=== PATIENT | male | born 1970 | race African-American/Black ===

== ENCOUNTER 2018-01-01 07:50 | Emergency (ER) | payer SELFPAY ==
--- NOTE | 2018-01-01 08:11 | ED Physician Documentation ---
General Adult - HISTORIAN Historian: patient - HPI Stated Complaint: swollen eye Chief Complaint: General Adult Onset: days ago (1) Timing: still present Severity: moderate Further Comments: yes (Pt is 47 yo male with itchiness and swelling around his R eye. Vision is unimpaired. No pain, per se, apart from itching. 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 He was struck by some flying debris in his glasses, but did not notice any problem until later in the day. Pt also has a rash on his upper extremities. He speculates that he may have gotten poison gardenia in his eye after scratching the rash on his arms.) - ROS CONST: no problems EYES/ENT: other (swelling/itching R eye) CVS/RESP: none GI/: none MS/SKIN/LYMPH: rash - PAST HX Past History: other (appendectomy) Allergies/Adverse Reactions: Allergies Allergy/AdvReac Type Severity Reaction Status Date / Time codeine Allergy Verified 01/01/18 08:12 Home Medications: Ambulatory Orders Medication Instructions Recorded NK 01/01/18 - SOCIAL HX Smoking History: chew - FAMILY HX Family History: No - VITAL SIGNS Vital Signs: Vital Signs Temp Pulse Resp BP Pulse Ox 98.0 F 70 14 121/79 98 01/01/18 07:56 01/01/18 07:56 01/01/18 07:56 01/01/18 07:56 01/01/18 07:56 - REVIEWED ASSESSMENTS Nursing Assessment Reviewed: Yes Vitals Reviewed: Yes Progress - Progress Progress: Solu-medrol 125 mg IM Pt declined oral steroid taper due to cost. Rx Keflex 500 mg. Take one every 8 hours for 7 to 10 days. Rx Gentamicin 0.3% ophthalmic drops. One or two drops in both eyes every 4 hours for 7 to 10 days. 1st dose in ER. May use [id number] Benadryl and Pepcid (or Zantac) for itch. Use as directed. General Adult Physical Exam - PHYSICAL EXAM GENERAL APPEARANCE: mild distress EENT: other (L eye edema below lower eyelid; visual acuity normal, R=L) RESPIRATORY: no resp distress, chest non-tender, breath sounds normal CVS: reg rate & rhythm, heart sounds normal BACK: normal inspection, no CVA tenderness SKIN: warm/dry, other (erythematous rash on upper extremities) EXTREMITIES: non-tender, normal range of motion, no evidence of injury NEURO: oriented X3, motor nml, sensation nml Discharge Clincal Impression: Eye swelling, left Referrals: Primary Doctor,No [Primary Care Provider] - Condition: Good Disposition: 01 HOME, SELF-CARE Decision to Admit: NO Decision Time: 09:10
[2018-01-01] MEDS ORDERED: GENTAMICIN SULFATE 0.3% OPTH SOL OP ONE (08:13)
[2018-01-01] MEDS ORDERED: methylPREDNISolone SOD SUCC 125 MG/2 ML VIAL IM ONE (08:30)
[2018-01-01 09:13] VITALS: BP 120/80
== END 2018-01-01 09:08 | disposition home or self-care (01) ==
LOC: ED 07:50
DX: H57.8 Other specified disorders of eye and adnexa (principal)
CPT/HCPCS: 99283; J2930